=== PATIENT | male | born 1990 | race Caucasian/White ===

== ENCOUNTER 2016-11-29 08:02 | Emergency (ER) | payer SELFPAY ==
[~2016-11-29 08:02] MED LIST: BACLOFEN10 MG PO; BACTRIM DS TABL1 TA1 PO; ELIMITE60 GM TOP; FLEXERIL PO; HYDROCODON-ACE1 EAC7 PO; MEDROL PO; NAPROSYN-EC500 M1 PO; NO MEDICATIONS; NORCO 5/325 TAB1 TAB PO; PEN-VEE K PO; PREDNISONE PO; VICODIN 5/500 T1 TAB PO
== END 2016-11-29 09:10 | disposition home or self-care (01) ==
LOC: SED 08:02
DX: L02.213 Cutaneous abscess of chest wall (principal); L03.313 Cellulitis of chest wall; K21.9 Gastro-esophageal reflux disease without esophagitis; F17.210 Nicotine dependence, cigarettes, uncomplicated; Z91.030 Bee allergy status
CPT/HCPCS: 87070; 87077; 87186; 87205; 99282